=== PATIENT | female | born 1970 | race Caucasian/White ===

== ENCOUNTER 2022-03-21 23:08 | Emergency (ER) | payer OTHER ==
[2022-03-21 23:15] VITALS: BP 118/72; PULSE 75; RESP 18; TEMP 97.9; BMI 32.9
[2022-03-22] MEDS ORDERED: FAMOTIDINE 20 MG TABLET PO ONE (01:47)
[2022-03-22] MEDS ORDERED: predniSONE 20 MG TABLET (UD) PO ONE (01:47)
[2022-03-22] MEDS ORDERED: FAMOTIDINE 20 MG TABLET ONE (01:48)
[2022-03-22] MEDS ORDERED: predniSONE 20 MG TABLET (UD) ONE (01:49)
== END 2022-03-22 02:09 | disposition home or self-care (01) ==
LOC: JER 23:08
DX: T78.40XA Allergy, unspecified, initial encounter (principal); L50.8 Other urticaria
CPT/HCPCS: 99283-25